=== PATIENT | male | born 1940 | race Caucasian/White ===

== ENCOUNTER 2025-01-05 08:06 | Inpatient (IN) | payer MEDICARE, OTHER ==
[~2025-01-05] VITALS: Ht 180.3 cm; Wt 83.0 kg
[~2025-01-05 08:06] MED LIST: AMLO1CAP92 PO; ASPI-605 PO; ATOR10TA PO; BENZ-13 PO; BRIM5DRO3 OP
[2025-01-05 08:43] LABS: BASOPHILS % (AUTO) 0.8 % (0.0-2.0); EOSINOPHILS # (AUTO) 0.1 K/uL (0.0-0.7); EOSINOPHILS % (AUTO) 1.5 % (0.0-6.0); HEMATOCRIT 44 % (39-51); HEMOGLOBIN 14.4 g/dL (13.5-17.5); LYMPHOCYTES # (AUTO) 1.3 K/uL (0.8-4.8); LYMPHOCYTES % (AUTO) 24.3 % (20.0-44.0); MEAN CORPUSCULAR HEMOGLOBIN 28 PG (26.0-33.0); MEAN CORPUSCULAR HGB CONC 33 g/dl (31.0-36.0); MEAN CORPUSCULAR VOLUME 86 fL (80-96); MONOCYTES # (AUTO) 0.4 K/uL (0.1-1.30); MONOCYTES % (AUTO) 7.6 % (2.0-12.0); NEUTROPHILS # (AUTO) 3.5 K/uL (1.8-8.9); NEUTROPHILS % (AUTO) 65.8 % (43.0-81.0); PLATELET COUNT (AUTO) 208 K/uL (150-450); RED BLOOD CELL COUNT(AUTO) 5.09 MIL/uL (4.5-6.0); RED CELL DISTRIBUTION WIDTH 15.1 % (11.5-15.0); WHITE BLOOD COUNT (AUTO) 5.3 K/uL (4.3-11.0)
[2025-01-05 08:52] LABS: CALCIUM, SERUM 8.3 mg/dL (8.5-10.1); CARBON DIOXIDE 25 mmol/L (21-32); CHLORIDE 107 mmol/L (98-107); CREATININE 1.2 mg/dL (0.6-1.3); GLUCOSE 99 mg/dL (74-106); POTASSIUM 4.6 mmol/L (3.5-5.1); SODIUM SERUM 137 mmol/L (136-145); UREA NITROGEN, BLOOD 22 mg/dL (7-18)
[2025-01-05 08:58] LABS: ALANINE AMINOTRANSFERASE 21 U/L (12-78); ALBUMIN 3.3 g/dL (3.4-5.0); ALKALINE PHOSPHATASE 68 U/L (46-116); ASPARTATE AMINOTRANSFERASE 20 U/L (15-37); BILIRUBIN,DIRECT 0.2 mg/dL (0.0-0.2); BILIRUBIN,TOTAL 0.8 mg/dL (0.2-1.0); INR 1.18 (0.91-1.10); PARTIAL THROMBOPLASTIN TIME 31.9 SEC (24.3-34.3); PROTHROMBIN TIME 12.4 SECS (9.2-11.1); TOTAL PROTEIN, SERUM 6.7 g/dL (6.4-8.2)
[2025-01-05] MEDS ORDERED: METO25TA20 PO (08:58)
[2025-01-05] MEDS ORDERED: MULT-594 PO (08:58)
[2025-01-05] MEDS ORDERED: VALS160T29 PO (08:58)
[2025-01-05] MEDS ORDERED: APIX5TAB PO (08:58)
[2025-01-05] MEDS ORDERED: BRIN8DRO2 EACHEYE (08:58)
[2025-01-05] MEDS ORDERED: LATA5DRO EACHEYE (08:58)
[2025-01-05] MEDS ORDERED: AMLO-212 PO (08:58)
[2025-01-05] MEDS ORDERED: MAG HYDROX/AL HYDROX/SIMETH 30 ML UDC PO PRN (10:30)
[2025-01-05] MEDS ORDERED: ONDANSETRON HCL/PF 4 MG/2 ML VIAL IVP PRN (10:30)
[2025-01-05] MEDS ORDERED: MAGNESIUM HYDROXIDE 30 ML UDC PO PRN (10:30)
[2025-01-05] MEDS ORDERED: ACETAMINOPHEN 325 MG TABLET PO PRN (10:30)
[2025-01-05] MEDS: IV NS 0.9% 1,000 ML IV PRN (13:08)
[2025-01-05 16:00] VITALS: BP 141/92; TEMP 97.5; O2SAT 100
[2025-01-05] MEDS: BRINZOLAMIDE 1 % OPHTH SOLN 10 ML BOTTLE OP SCH (16:49)
[2025-01-05] MEDS: Z GUARD REMEDY 4 OZ OINT TP PRN (16:50)
[2025-01-05] MEDS: BRIMONIDINE TARTRATE OPHT SOLN 5 ML BOTTLE OP SCH (16:50)
[2025-01-05 16:54] LABS: HEMOGLOBIN 13.8 g/dL (13.5-17.5)
[2025-01-05] MEDS ORDERED: Medication Not On Formulary EA (Latanoprostene Bunod (Vyzulta) 1 DROP) EACHEYE SCH (18:00)
[2025-01-05 18:01] LABS: HEMOGLOBIN 13.8 g/dL (13.5-17.5)
[2025-01-05 20:00] VITALS: BP 144/87; TEMP 97; O2SAT 97
[2025-01-05 23:10] LABS: HEMOGLOBIN 13.2 g/dL (13.5-17.5)
[2025-01-06] VITALS: BP 134/84; TEMP 97.9; O2SAT 99
[2025-01-06 02:47] LABS: BASOPHILS # (AUTO) 0.1 K/uL (0.0-0.2); BASOPHILS % (AUTO) 0.9 % (0.0-2.0); EOSINOPHILS # (AUTO) 0.1 K/uL (0.0-0.7); EOSINOPHILS % (AUTO) 1.7 % (0.0-6.0); HEMATOCRIT 36 % (39-51); HEMOGLOBIN 12.4 g/dL (13.5-17.5); LYMPHOCYTES # (AUTO) 1.8 K/uL (0.8-4.8); LYMPHOCYTES % (AUTO) 30.1 % (20.0-44.0); MEAN CORPUSCULAR HEMOGLOBIN 29 PG (26.0-33.0); MEAN CORPUSCULAR HGB CONC 35 g/dl (31.0-36.0); MEAN CORPUSCULAR VOLUME 85 fL (80-96); MONOCYTES # (AUTO) 0.5 K/uL (0.1-1.30); MONOCYTES % (AUTO) 7.9 % (2.0-12.0); NEUTROPHILS # (AUTO) 3.6 K/uL (1.8-8.9); NEUTROPHILS % (AUTO) 59.4 % (43.0-81.0); PLATELET COUNT (AUTO) 184 K/uL (150-450); RED BLOOD CELL COUNT(AUTO) 4.21 MIL/uL (4.5-6.0); RED CELL DISTRIBUTION WIDTH 14.9 % (11.5-15.0); WHITE BLOOD COUNT (AUTO) 6.1 K/uL (4.3-11.0)
[2025-01-06 02:48] LABS: HEMOGLOBIN 12.4 g/dL (13.5-17.5)
[2025-01-06 03:00] LABS: CALCIUM, SERUM 8.3 mg/dL (8.5-10.1); CREATININE 1.1 mg/dL (0.6-1.3); PHOSPHORUS 3.8 mg/dL (2.5-4.9); POTASSIUM 3.9 mmol/L (3.5-5.1)
[2025-01-06 04:00] VITALS: BP 125/63; TEMP 97.7; O2SAT 98
[2025-01-06 08:00] VITALS: BP 131/90; TEMP 98.2; O2SAT 99
[2025-01-06] MEDS: VALSARTAN 80 MG TABLET PO SCH (08:33)
[2025-01-06] MEDS: ATORVASTATIN 10 MG TABLET PO SCH (08:33)
[2025-01-06] MEDS: PANTOPRAZOLE 40 MG VIAL IV SCH (08:33)
[2025-01-06] MEDS: MULTIVITAMINS,THERAGRAN 1 UDTAB TABLET PO SCH (08:33)
[2025-01-06] MEDS: AMLODIPINE BESYLATE 5 MG TABLET PO SCH (08:34)
[2025-01-06] MEDS: METOPROLOL TARTRATE 25 MG TABLET PO SCH (08:34)
[2025-01-06 08:47] LABS: IRON, SERUM 70 ug/dl (50-175); TOTAL IRON BINDING CAPACITY 236 ug/dl (250-450)
[2025-01-06 09:02] LABS: FERRITIN 81 ng/mL (8-388)
[2025-01-06] MEDS: PEG 3350/NA SULF,BICARB,CL/KCL 4,000 ML BOTTLE PO ONE (11:53)
[2025-01-06 12:00] VITALS: BP 121/77; TEMP 97.5; O2SAT 100
[2025-01-06 16:00] VITALS: BP 135/76; TEMP 97.9; O2SAT 99
[2025-01-06] MEDS: BISACODYL (5 MG) 5 MG TABLET.DR PO ONE (17:57)
[2025-01-06 20:00] VITALS: BP 116/71; TEMP 97.9; O2SAT 98
[2025-01-06 21:49] LABS: HEMOGLOBIN 11.7 g/dL (13.5-17.5)
[2025-01-07] VITALS: BP 129/74; TEMP 97.9; O2SAT 99
[2025-01-07 03:44] LABS: BASOPHILS % (AUTO) 0.7 % (0.0-2.0); EOSINOPHILS # (AUTO) 0.1 K/uL (0.0-0.7); EOSINOPHILS % (AUTO) 2.8 % (0.0-6.0); HEMATOCRIT 34 % (39-51); HEMOGLOBIN 11.4 g/dL (13.5-17.5); LYMPHOCYTES # (AUTO) 1.6 K/uL (0.8-4.8); LYMPHOCYTES % (AUTO) 31.7 % (20.0-44.0); MEAN CORPUSCULAR HEMOGLOBIN 29 PG (26.0-33.0); MEAN CORPUSCULAR HGB CONC 34 g/dl (31.0-36.0); MEAN CORPUSCULAR VOLUME 85 fL (80-96); MONOCYTES # (AUTO) 0.4 K/uL (0.1-1.30); MONOCYTES % (AUTO) 8.1 % (2.0-12.0); NEUTROPHILS # (AUTO) 2.9 K/uL (1.8-8.9); NEUTROPHILS % (AUTO) 56.7 % (43.0-81.0); PLATELET COUNT (AUTO) 177 K/uL (150-450); RED BLOOD CELL COUNT(AUTO) 3.92 MIL/uL (4.5-6.0); RED CELL DISTRIBUTION WIDTH 15.5 % (11.5-15.0); WHITE BLOOD COUNT (AUTO) 5.2 K/uL (4.3-11.0)
[2025-01-07 03:55] LABS: INR 1.18 (0.91-1.10); PARTIAL THROMBOPLASTIN TIME 29.6 SEC (24.3-34.3); PROTHROMBIN TIME 12.4 SECS (9.2-11.1)
[2025-01-07 03:59] LABS: ALBUMIN 2.8 g/dL (3.4-5.0); BILIRUBIN,TOTAL 0.6 mg/dL (0.2-1.0); CALCIUM, SERUM 8.3 mg/dL (8.5-10.1); CREATININE 1.2 mg/dL (0.6-1.3); HEMOGLOBIN 11.4 g/dL (13.5-17.5); MAGNESIUM 1.9 mg/dL (1.8-2.4); PHOSPHORUS 3.7 mg/dL (2.5-4.9); TOTAL PROTEIN, SERUM 5.4 g/dL (6.4-8.2)
[2025-01-07 04:00] VITALS: BP 132/80; TEMP 97.8; O2SAT 97
[2025-01-07 08:00] VITALS: BP 129/73; TEMP 97.6; O2SAT 99
[2025-01-07 08:17] VITALS: BP 129/73
[2025-01-07] MEDS ORDERED: FAMO-131 PO (17:32)
[2025-01-07] MEDS ORDERED: HYDR25SU33 RC (17:32)
== END 2025-01-07 17:59 | disposition home or self-care (01) | DRG 377 ==
LOC: ER 08:27 → TELE 11:45 → TELE1 11:50 → MEDSG1 01-07 11:39
PROC: 0DJD8ZZ Inspection of Lower Intestinal Tract, Via Natural or Artificial Opening Endoscopic (ICD-10-PCS; principal; 2025-01-07)
PROC: 0DB98ZX Excision of Duodenum, Via Natural or Artificial Opening Endoscopic, Diagnostic (ICD-10-PCS; 2025-01-07)
PROC: 0DB68ZX Excision of Stomach, Via Natural or Artificial Opening Endoscopic, Diagnostic (ICD-10-PCS; 2025-01-07)
DX: K57.31 Diverticulosis of large intestine without perforation or abscess with bleeding (principal); N17.0 Acute kidney failure with tubular necrosis; I48.20 Chronic atrial fibrillation, unspecified; I10 Essential (primary) hypertension; Z90.49 Acquired absence of other specified parts of digestive tract; J45.909 Unspecified asthma, uncomplicated; K64.8 Other hemorrhoids; Z88.0 Allergy status to penicillin; Z85.46 Personal history of malignant neoplasm of prostate; Z79.01 Long term (current) use of anticoagulants; I34.0 Nonrheumatic mitral (valve) insufficiency; Z86.0100 Personal history of colon polyps, unspecified; Z86.73 Personal history of transient ischemic attack (TIA), and cerebral infarction without residual deficits; D50.0 Iron deficiency anemia secondary to blood loss (chronic); K29.71 Gastritis, unspecified, with bleeding; K29.80 Duodenitis without bleeding
CPT/HCPCS: 36415; 71045-TC; 80048-TC; 80053-TC; 80076-TC; 82728-TC; 83540-TC; 83605-TC; 83735-TC; 84100-TC; 84484-TC; 85025-TC; 85027-TC; 85730-TC; 86850-TC; 93307-TC; A4223; A9512; A9560; G0378; J2470; J2704; J3490; J7030